=== PATIENT | male | born 1975 | race African-American/Black ===

== ENCOUNTER 2016-05-25 23:28 | Emergency (ER) | payer OTHER ==
--- NOTE | ~2016-05-25 | EKG ---
PATIENT: ALESIA JORDAN UNIT #: [id number] Ventricular Rate: 74 BPM Atrial Rate: 74 BPM P-R Interval: 176 ms QRS Duration: 102 ms Q-T Interval: 368 ms QTC Calculation(Bezet): 408 ms P [place]: 55 degrees Calculated R [place]: 48 degrees Calculated T [place]: 3 degrees Diagnosis Line: Normal sinus rhythm Diagnosis Line: Incomplete right bundle branch block Diagnosis Line: Borderline ECG Diagnosis Line: When compared with ECG of 23-DEC-2015 05:36, Diagnosis Line: Incomplete right bundle branch block is now Diagnosis Line: Present Diagnosis Line: Confirmed by VALERIA SANTA MD ([id number]) on 05/26/2016 Diagnosis Line: 11:24:05 PM INTERPRETING MD: ARINA DUPREE
[2016-05-25 22:50] LABS: POC - CKMB 3.3 ng/mL (0.0-7.9); POC - TROPONIN <0.05 ng/mL (<=0.05)
[2016-05-25 23:24] LABS: URINE SOURCE CLEAN CATCH
[2016-05-25 23:25] LABS: URINE APPEARANCE CLEAR; URINE BILIRUBIN NEG (NEG); URINE BLOOD NEG (NEG); URINE COLOR YELLOW; URINE GLUCOSE NEG (NEG); URINE KETONE NEG (NEG); URINE LEUKOCYTE ESTERASE NEG (NEG); URINE NITRATE NEG (NEG); URINE PROTEIN NEG (NEG); URINE SPECIFIC GRAVITY 1.018 (1.003-1.035); URINE UROBILINOGEN 0.2 MG/DL (NEG)
[~2016-05-25 23:28] MED LIST: ACETAMINOPHEN PO; AMOXIL500 MG PO; ATORVASTATIN CA80 MG PO; BAYER ASPIRIN325 M1 PO; FLEXERIL10 M1 PO; IBUPROFEN800 MG PO; KEFLEX500 MG PO; LIPITOR20 MG PO; LISINOPRIL10 MG PO; LISINOPRIL5 MG PO; MEDROL DOSEPAK4 MG DOB; METFORMIN HCL500 M1 PO; NEURONTIN300 MG PO; NORVASC PO; NOVOLIN 70/30 V10 M1 SQ; OXYCODON HCL-1 UDTA1 PO; PANTOPRAZOLE SO40 MG PO; TENORETIC 50 TA1 TAB PO; TOPROL XL 50 MG50 MG PO; [UNRECOGNIZED DRUG - OTHER] PO
[2016-05-25 23:29] LABS: CULTURE INDICATED? NO
[2016-05-26 00:26] LABS: POC - CKMB 2.6 ng/mL (0.0-7.9); POC - TROPONIN <0.05 ng/mL (<=0.05)
[2016-05-26 01:35] LABS: BASOPHIL# 0.1 X10e3 (0-0.3); EOSINOPHIL# 0.1 X10e3 (0-0.7); EOSINOPHIL% 1.1 % (0.0-7.0); HEMATOCRIT 41.2 % (38.0-50.0); HEMOGLOBIN 12.9 gm/dL (13.0-16.0); LYMPHOCYTE# 1.8 X10e3 (1.0-3.5); LYMPHOCYTE% 25.2 % (17.0-45.0); MEAN CELL VOLUME 78.6 FL (83-96); MEAN CORPUSCULAR HEMOGLOBIN 24.5 PG (28-34); MEAN CORPUSCULAR HGB CONC 31.2 g/dL (30-36); MEAN PLATELET VOLUME 8.1 FL (6.5-11.5); MONOCYTE# 0.8 X10e3 (0-1.0); MONOCYTE% 11.6 % (3.0-12.0); NEUTROPHIL# 4.4 X10e3 (1.5-7.1); NEUTROPHIL% 61.1 % (40-75); PLATELET COUNT 319 X10e3 (140-420); RED BLOOD COUNT 5.24 X10e (3.90-5.60); RED CELL DISTRIBUTION WIDTH 14.9 % (11.0-15.5); WHITE BLOOD COUNT 7.3 X10e3 (4.0-10.5)
[2016-05-26 01:36] LABS: DIFF IND NO
[2016-05-26 01:58] LABS: ALKALINE PHOSPHATASE 37 U/L (32-92); ALT (SGPT) 36 U/L (10-40); AST (SGOT) 31 U/L (10-42); BILIRUBIN,TOTAL 0.7 mg/dL (0.2-2.0); BLOOD UREA NITROGEN 14 mg/dL (9-23); BUN/CREATININE RATIO 15.55; CALCIUM SERUM 9.2 mg/dL (8.4-10.2); CARBON DIOXIDE 26 mmol/L (22-31); CHLORIDE 99 mmol/L (100-111); CREATININE SERUM 0.9 mg/dL (0.6-1.4); GLOM FILT RATE Estimated 123.4 mL/min (>60); GLUCOSE FASTING 67 mg/dL (70-110); POTASSIUM 3.8 mmol/L (3.5-5.1); PROTEIN TOTAL SERUM 7.6 g/dL (6.0-8.3); SODIUM 135 mmol/L (135-145)
[2016-05-26 02:19] LABS: BILIRUBIN, DIRECT <0.1 mg/dL (0.0-0.2); BILIRUBIN,INDIRECT 0.6 mg/dL (0.0-0.9)
== END 2016-05-26 02:42 | disposition home or self-care (01) ==
LOC: CED 23:28
PROVIDERS: Emergency Medicine
DX: R00.2 Palpitations (principal); G47.62 Sleep related leg cramps; I10 Essential (primary) hypertension; Z88.8 Allergy status to other drugs, medicaments and biological substances; Z79.899 Other long term (current) drug therapy; Z79.82 Long term (current) use of aspirin
CPT/HCPCS: 36415; 80048; 80076; 81003; 82553; 82947; 84484; 85025; 93005; 96360; 99284

== ENCOUNTER → 2016-06-04 | Outpatient (CLI) | payer OTHER ==
[~2016-06-04] MED LIST changes: +ASPIRIN ENTERI325 M1 PO; +ASPIRIN81 M2 PO; +OXYCONTIN10 MG PO; +PROTONIX PO
--- NOTE | ~2016-06-04 | MR103 ---
[facility] A Service of [facility] RADIOLOGY TEXT RESULTS PATIENT: ALESIA JORDAN LOCATION: [facility] : [birth year] UNIT #: [id number] AGE: [address]: Earlene Sheehan MD SEX: M ORDER DR: [id number] [address] [address] [id number] MR#: [id number] Acc #: [id number] NAME: ALESIA JORDAN : 1975 SEX: M STUDY DATE/TIME: 06/04/2016 16:06 UNIT: [facility] ROOM: STUDY DESCRIPTION: MR Knee Wo Contrast Lt Attending Physician: Earlene Sheehan M.D. Referring Physician: Sherif Resendiz M.D. Ordering Physician: Sherif Resendiz M.D. Primary Care Physician: Earlene Sheehan M.D. MRI CENTER REPORT This report is preliminary unless electronic signature is present. EXAM Left knee MRI without contrast, 06/04/2016. HISTORY 41-year-old male with left knee pain for 4 years. No specific injury. No prior left knee surgery. COMPARISON Knee x-rays, 05/25/2016 TECHNIQUE Routine, unenhanced, multiplanar, multisequence, high field MR imaging of the left knee was performed. FINDINGS The medial meniscus is intact. There is mild prominence of the body segment lateral meniscus, suggesting a discoid variant. No evidence of a lateral meniscus tear. Cruciate and collateral ligaments are intact. Extensor mechanism is intact. No joint effusion. Very tiny popliteal cysts. Patellofemoral articular cartilage is intact. Medial and lateral compartment articular cartilage is intact. Bone marrow signal is within normal limits. Visualized musculature is unremarkable. IMPRESSION 1. No evidence of a meniscus tear. There is mild prominence of the body segment lateral meniscus, suggesting a discoid variant. 2. No acute ligament injury. No evidence of significant articular cartilage loss. [facility] A Service of [facility] RADIOLOGY TEXT RESULTS PATIENT: ALESIA JORDAN LOCATION: [facility] : [birth year] UNIT #: [id number] AGE: [address]: Earlene Sheehan MD SEX: M ORDER DR: 3. No acute bony abnormality. Dictated by... Gonzalo Fish M.D. THIS IS AN ELECTRONICALLY VERIFIED REPORT Gonzalo Fish M.D. at 06/05/2016 5:01 PM JANIYA/mary TD: 06/05/2016 12:16 JOB #: [id number] MRI CENTER REPORT Page 1 of 1
== END | disposition home or self-care (01) ==
LOC: SMRI 15:58
DX: M22.42 Chondromalacia patellae, left knee (principal)
CPT/HCPCS: 73721

== ENCOUNTER 2016-09-14 13:12 | Emergency (ER) | payer OTHER ==
[~2016-09-14] VITALS: Ht 188 cm; Wt 163.3 kg
[~2016-09-14 13:12] MED LIST changes: -ASPIRIN ENTERI325 M1 PO; -ASPIRIN81 M2 PO; -OXYCONTIN10 MG PO; -PROTONIX PO
== END 2016-09-14 15:10 | disposition left against medical advice (07) ==
LOC: CED 13:12
DX: Z53.21 Procedure and treatment not carried out due to patient leaving prior to being seen by health care provider (principal)

== ENCOUNTER 2016-09-16 20:07 | Observation (INO) | payer OTHER ==
[~2016-09-16] VITALS: Ht 188 cm; Wt 166.2 kg
--- NOTE | ~2016-09-16 | CT71 ---
[facility] A Service of [facility] RADIOLOGY TEXT RESULTS PATIENT: ALESIA JORDAN LOCATION: [facility] 340[facility]01 : [birth year] UNIT #: [id number] AGE: [address]: Varun Dove MD SEX: M ORDER DR: [id number] [facility] [address]. [place], [place] [address] [id number] MR#: [id number] Acc #: [id number] NAME: ALESIA JORDAN : 1975 SEX: M STUDY DATE/TIME: 09/16/2016 21:46 UNIT: [facility] ROOM: STUDY DESCRIPTION: CT Head Wo Contrast Attending Physician: Tim Campbell D.O. Ordering Physician: Tim Campbell D.O. Primary Care Physician: Earlene Sheehan M.D. MEDICAL IMAGING REPORT This report is preliminary unless electronic signature is present EXAM Head CT without contrast 09/16/2016 HISTORY Dizziness, lightheaded off balance for [address] exam was performed with one or more of the following radiation dose reduction techniques: automatic exposure control, adjustment of mA and/or kV according to patient size, and iterative reconstruction. FINDINGS Multiple axial images were obtained from the skull base to vertex without intravenous contrast administration. The ventricles are normal in size, shape and position. There is no midline shift. There is no mass or mass effect, hemorrhage or acute infarct. There is a 2 cm polyp or retention cyst in the right maxillary sinus. IMPRESSION 1. No intracranial abnormality. 2. A 2 cm polyp or retention cyst right maxillary sinus. Dictated by... Justin Combs M.D. THIS IS AN ELECTRONICALLY VERIFIED REPORT Justin Combs M.D. at 09/17/2016 2:09 PM BULMARO/lemuel TD: 09/16/2016 23:56 JOB #: [id number] [facility] A Service of [facility] RADIOLOGY TEXT RESULTS PATIENT: ALESIA JORDAN LOCATION: [facility]-01 : [birth year] UNIT #: [id number] AGE: [address]: Varun Dove MD SEX: M ORDER DR: MEDICAL IMAGING REPORT Page 1 of 1 COPY
--- NOTE | ~2016-09-16 | EKG ---
PATIENT: ALESIA JORDAN UNIT #: [id number] Ventricular Rate: 47 BPM Atrial Rate: 47 BPM P-R Interval: 182 ms QRS Duration: 108 ms Q-T Interval: 428 ms QTC Calculation(Bezet): 378 ms P [place]: 55 degrees Calculated R [place]: 58 degrees Diagnosis Line: Marked sinus bradycardia Diagnosis Line: Abnormal ECG Diagnosis Line: When compared with ECG of 16-SEP-2016 20:16, Diagnosis Line: Vent. rate has decreased BY 37 BPM Diagnosis Line: Confirmed by BENJIE TODD MD ([id number]) on Diagnosis Line: 09/17/2016 3:53:37 PM INTERPRETING MD: CHEKO
--- NOTE | ~2016-09-16 | BMI ---
[facility] Nutrition Therapy DATE: 09/17/16 Patient: ALESIA JORDAN Physician: THERESE Address: [address] [facility] [facility] Room/Bed: [address] [place] [address], Zip: [place] [address] Admit Date: 09/17/16 Date of : [birth year] Height: 6 2 Weight: 366 166.2 HIGH BMI NOTE: DX: 41 y/o male admitted for chest pain ANTHROPOMETRICS: ht: 6'2" wt: 366# (166 kg) BMI 47 DIET: Consistent Carbohydrate INTERVENTION: 1. Consistent carbohydrate diet RECOMMENDATIONS: 1. Add healthy heart diet to current consistent carbohydrate diet in order to promote gradual weight loss towards a healthy BMI. RD will f/u per protocol. Respectfully, HEVER JC, [employer] Tester Carolin Buckner, RD, LD [facility] cc: client file
--- NOTE | ~2016-09-16 | HP ---
Unit #: [id number] #: [id number] Patient: ALESIA JORDAN [id number] [facility]. [place], [place] [address] [id number] MR#: [id number] NAME: ALESIA JORDAN ROOM: 340 Age: 41 Sex: M Admission Date: 09/17/2016 : 1975 Attending Physician: Varun Dove M.D. Primary Care Physician: Earlene Sheehan M.D. HISTORY AND PHYSICAL HISTORY OF PRESENT ILLNESS This is a 41-year-old male, previously known to our group with prior admission to [facility] 12/21/2015 through 12/24/2015 for atypical chest pain. The patient underwent an exercise Cardiolite stress test on 12/24/2015, which revealed no ischemia. Ejection fraction was 55%. The study was technically difficult. A two-dimensional echocardiogram was completed on 12/23/2015, which revealed an ejection fraction of 55%. Additional past medical history includes hypertension, hyperlipidemia and diabetes. The patient has not been taking his metformin since May of this year. He states that his hemoglobin A1c improved and he no longer needed it. He does have a history of left MCA stroke in 04/2015, as well as obstructive sleep apnea on CPAP, obesity and reformed tobacco abuse. The patient presented to the emergency department with complaints of not feeling well. He states that over the last couple of days he has been lightheaded and somewhat weak. He felt off balance, but did not have any syncope or fall. He denies a fever or chills, but has had some congestion. He took an allergy pill over the counter, which seemed to help. He does have occasional headaches, but no loss of vision, weakness or difficulty with speech. He has noted some continued chest pain which only occurs after meals. He relates this to heartburn. The pain is in the midsternal chest. There is no radiation to the neck, jaw, shoulders or arms. No associated symptoms of nausea, vomiting, diaphoresis or shortness of breath. He denies palpitations or lower extremity edema. There are no reports of PND or orthopnea. He is reportedly complaint with this CPAP. Over the last couple of days he has been outside in the heat. He tries to stay hydrated, but he thinks that the heat has contributed to his symptoms of not feeling well. In the emergency department his temperature was 908.6, pulse 84, respiratory rate 18, blood pressure 163/92 and O2 saturations 100% on room air. Orthostatic vital signs were obtained and reportedly were negative. He was given normal saline and his symptoms resolved. He was admitted overnight for dizziness and chest pain. Cardiac enzymes were negative. He ruled out for myocardial infarction. Orthostatics were repeated and were negative. TSH was obtained and was negative. Telemetry revealed sinus bradycardia with rates in the 40s to 50s, but there was no high degree AV block or pauses. PAST MEDICAL HISTORY 1. Previous admission to [facility] 12/21/2015 Unit #: [id number] #: [id number] Patient: ALESIA JORDAN through 12/24/2015 for atypical chest pain. 2. Exercise Cardiolite stress test 12/24/2015 revealed no ischemia. Ejection fraction 55%. Technically difficult study. 3. Two-dimensional echocardiogram 12/23/2015 was a technically difficult study. Ejection fraction 65%. Moderately dilated right ventricle. 4. Hypertension. 5. Hyperlipidemia. 6. Diabetes mellitus type 2, not currently taking metformin due to reportedly low hemoglobin A1c. 7. Left MCA cerebrovascular accident in 04/2015. 8. Obstructive sleep apnea on CPAP. 9. Obesity. 10. Chronic neck and back pain. 11. Reformed tobacco abuse. PAST SURGICAL HISTORY 1. Neck surgery. 2. Scope of knee. SOCIAL HISTORY The patient is currently unemployed. He is a reformed smoker and quit four years ago. No reports of alcohol or illicit drug use. FAMILY HISTORY Noncontributory for heart disease. His father of cancer. ALLERGIES Gabapentin and Flexeril. HOME MEDICATIONS 1. Atorvastatin 80 mg p.o. daily. 2. Lisinopril 10 mg p.o. daily. 3. Aspirin 325 mg p.o. daily. 4. OxyContin 10 mg p.o. q.i.d. p.r.n. neck and back pain. REVIEW OF SYSTEMS Ten point review of systems negative except for details noted above in history of present illness. PHYSICAL EXAMINATION GENERAL: This is a 41-year-old male in no acute distress. VITALS: Temperature 98.3, pulse 48, blood pressure 113/59. SKIN: Warm and dry. NECK: Supple. No jugular vein distension. No hepatojugular reflux. Normal carotid upstrokes. No carotid bruits auscultated. LUNGS: Bilateral breath sounds have good air entry throughout all lung lam. Respirations even and unlabored. No rales, rhonchi or wheezes. HEART: S1 and S2. Regular rate and rhythm. No murmurs, rubs or gallops. ABDOMEN: Soft, nontender and nondistended. Positive bowel sounds auscultated four quadrants. No ascites noted. Obese. EXTREMITIES: Bilateral lower extremities have no pretibial pitting edema. DP and PT pulses are 2+. Capillary refill less than 3 seconds. DIAGNOSTIC STUDIES IMAGING: CT of the head reveals no acute findings, 2 cm polyp/cyst in the right maxillary sinus. Unit #: [id number] #: [id number] Patient: ALESIA JORDAN LABORATORY: White blood cell count 10.6, hemoglobin 12.5, hematocrit 39.7, platelets 305, sodium 135, potassium 4.1, chloride 103, CO2 25, BUN 20, creatinine 1.1, glucose 123, CK total 415. MB 3.0, percentage MB 0.7, troponin 0.03 and 0.05. INR 0.9. D-dimer 456. TSH 1.01, total cholesterol 193, triglycerides 50, LDL 122, HDL 61. Hemoglobin A1c 5.6. CARDIOVASCULAR: Electrocardiogram reveals sinus bradycardia with a ventricular rate of 47 beats per minute. Incomplete right bundle branch block. ASSESSMENT 1. Lightheadedness. 2. Mild rhabdomyolysis/dehydration. 3. Sinus bradycardia. 4. Obstructive sleep apnea on CPAP. 5. Obesity. 6. History of left MCA cerebrovascular accident 04/2015. 7. Hypertension. 8. Hyperlipidemia. 9. History of diabetes mellitus type 2 with current hemoglobin A1c 5.6 off medication. 10. Normal stress test 12/24/2015. 11. Ejection fraction 65% per 2-D echocardiogram 12/23/2015. 12. Reformed tobacco abuse. PLAN 1. The patient presented to the hospital with complaints of not feeling well and lightheadedness. 2. He was admitted for further observation and started on IV fluids. 3. CK levels were elevated, indicating mild rhabdomyolysis. 4. Orthostatic vital signs are negative. 5. TSH level is normal. 6. The patient has had some chest pain after meals, which is likely from gastroesophageal reflux disease. He has been started on a proton pump inhibitor. 7. Telemetry revealed sinus bradycardia which could be related to sleep apnea and obesity. There are no heart rate lowering medications ordered. 8. The patient has ambulated and symptoms have resolved. He is stable and will be discharged home. The office will arrange an event monitor. 9. He is instructed to follow up with Dr. Dove on 11/19/2016 at 12:30 p.m. 10. The patient has been advised to lose weight by means of exercise and decreased caloric intake. Dictated by Yael Berger APRN for [employer] TD: 09/17/2016 14:50 JOB #: [id number] Unit #: [id number] #: [id number] Patient: ALESIA JORDAN HISTORY AND PHYSICAL Page 1 of 1 X X HISTORY AND PHYSICAL
--- NOTE | ~2016-09-16 | EKG ---
PATIENT: ALESIA JORDAN UNIT #: [id number] Ventricular Rate: 84 BPM Atrial Rate: 84 BPM P-R Interval: 168 ms QRS Duration: 102 ms Q-T Interval: 356 ms QTC Calculation(Bezet): 420 ms P [place]: 56 degrees Calculated R [place]: 38 degrees Calculated T [place]: 22 degrees Diagnosis Line: Normal sinus rhythm Diagnosis Line: Incomplete right bundle branch block Diagnosis Line: Borderline ECG Diagnosis Line: When compared with ECG of 25-MAY-2016 20:23, Diagnosis Line: No significant change was found Diagnosis Line: Confirmed by MISTY ETLLES MD ([id number]) on Diagnosis Line: 09/17/2016 12:34:08 AM INTERPRETING MD: KOKI DUPREE
[2016-09-16 21:54] LABS: BASOPHIL# 0.1 X10e3 (0-0.3); BASOPHIL% 1.1 % (0-2.5); EOSINOPHIL# 0.1 X10e3 (0-0.7); EOSINOPHIL% 0.9 % (0.0-7.0); HEMATOCRIT 39.7 % (38.0-50.0); HEMOGLOBIN 12.5 gm/dL (13.0-16.0); LYMPHOCYTE# 1.8 X10e3 (1.0-3.5); MEAN CELL VOLUME 78.3 FL (83-96); MEAN CORPUSCULAR HEMOGLOBIN 24.7 PG (28-34); MEAN CORPUSCULAR HGB CONC 31.5 g/dL (30-36); MEAN PLATELET VOLUME 7.7 FL (6.5-11.5); MONOCYTE# 1.1 X10e3 (0-1.0); MONOCYTE% 10.3 % (3.0-12.0); NEUTROPHIL# 7.5 X10e3 (1.5-7.1); NEUTROPHIL% 70.7 % (40-75); PLATELET COUNT 305 X10e3 (140-420); RED BLOOD COUNT 5.07 X10e (3.90-5.60); RED CELL DISTRIBUTION WIDTH 14.2 % (11.0-15.5); WHITE BLOOD COUNT 10.6 X10e3 (4.0-10.5)
[2016-09-16 21:55] LABS: DIFF IND NO
[2016-09-16 21:58] LABS: POC - CKMB 3.1 ng/mL (0.0-7.9); POC - TROPONIN <0.05 ng/mL (<=0.05)
[2016-09-16 22:08] LABS: INR 0.9; PARTIAL THROMBOPLASTIN TIME 24.2 SECONDS (23.5-31.3); PROTHROMBIN TIME (PATIENT) 10.2 SECONDS (10.0-11.7)
[2016-09-16 22:12] LABS: BUN/CREATININE RATIO 18.18; CALCIUM SERUM 9.2 mg/dL (8.4-10.2); CREATININE SERUM 1.1 mg/dL (0.6-1.4); GLOM FILT RATE Estimated 96.8 mL/min (>60); POTASSIUM 4.1 mmol/L (3.5-5.1)
[2016-09-17 00:07] LABS: POC - CKMB 2.3 ng/mL (0.0-7.9); POC - TROPONIN <0.05 ng/mL (<=0.05)
[2016-09-17] MEDS ORDERED: LISINOPRIL10 MG PO (02:48)
[2016-09-17] MEDS ORDERED: ATORVASTATIN CA80 MG PO (02:48)
[2016-09-17] MEDS ORDERED: ASPIRIN ENTERI325 M1 PO (02:50)
[2016-09-17] MEDS ORDERED: OXYCONTIN10 MG PO (04:37)
[2016-09-17 08:39] LABS: %MB 0.7 % (0.0-4.0)
[2016-09-17 11:42] LABS: CHOLESTEROL 193 mg/dL (0-200); HDL CHOLESTEROL 61 mg/dL (29-75); LDL CHOLESTEROL 122 mg/dL (-130); LDL/HDL RATIO 2 RATIO (0-4); TRIGLYCERIDES 50 mg/dL (10-160)
[2016-09-17] MEDS ORDERED: PROTONIX PO (13:47)
[2016-09-17] MEDS ORDERED: ASPIRIN81 M2 PO (13:47)
== END 2016-09-17 16:01 | disposition home or self-care (01) ==
LOC: CED 20:07 → CEDOF 09-17 02:43 → CED 09-17 03:01 → CEDOF 09-17 03:01 → C3A PCU 09-17 04:15
PROVIDERS: Emergency Medicine; Internal Medicine Cardiovascular Disease
DX: R42 Dizziness and giddiness (principal); E86.0 Dehydration; R00.1 Bradycardia, unspecified; G47.33 Obstructive sleep apnea (adult) (pediatric); Z99.81 Dependence on supplemental oxygen; I10 Essential (primary) hypertension; E78.5 Hyperlipidemia, unspecified; E11.9 Type 2 diabetes mellitus without complications; J33.8 Other polyp of sinus; Z87.891 Personal history of nicotine dependence
CPT/HCPCS: 36415; 70450; 80048; 80061; 82550; 82553; 83036; 84443; 84484; 85025; 85379; 85610; 85730; 93005; 96360; 99285; G0378